=== PATIENT | male | born 2000 | race Two or more races ===

== ENCOUNTER 2019-08-06 08:48 | Emergency (ER) | payer OTHER ==
[~2019-08-06] VITALS: Ht 193 cm; Wt 77.3 kg
[2019-08-06 09:02] VITALS: BP 134/85
[2019-08-06] MEDS ORDERED: TETanus/Pertussis (Acell)/Diphther VAC/PF (Tdap-Adult) 0.5ml syringe IMVAC ONE (09:10)
[2019-08-06] MEDS ORDERED: ibuprofen tablet 400 MG TABLET PO ONE (09:10)
[2019-08-06] MEDS ORDERED: diphenhydrAMINE 25mg capsule PO ONE (09:10)
[2019-08-06] MEDS ORDERED: CEPH250T PO (09:39)
== END 2019-08-06 10:13 | disposition home or self-care (01) ==
LOC: ER 08:50
DX: T63.311A Toxic effect of venom of black widow spider, accidental (unintentional), initial encounter (principal); Z79.899 Other long term (current) drug therapy; Y92.89 Other specified places as the place of occurrence of the external cause
CPT/HCPCS: 90471; 90715; 93005; 99283; Q0163